=== PATIENT | male | born 1980 | race Hispanic/Latino ===

== ENCOUNTER 2023-09-27 15:41 | Emergency (ER) | payer OTHER, SELFPAY ==
[2023-09-27 15:45] VITALS: BP 120/94
--- NOTE | 2023-09-27 16:48 | ED.GENMED ---
History of Present Illness
<Leona Hill NP - Last Filed: 09/27/23 22:04>
General
Chief Complaint: Alcohol Problem
Source: patient and police
Exam Limitations: none
Time Seen by Provider: 09/27/23 16:45
Nursing documentation reviewed up to this point in time: agreed with
Travel History
Have you had any contact with someone who has COVID-19?: No
Do you have any symptoms of coronavirus? Fever > 100 degrees, chills, cough, shortness of breath, sore throat, loss of taste or smell, muscle aches, or headache?: No
History of Present Illness
History of Present Illness:
Patient brought to ED by [employer] officers for medical clearance for incarceration. According to office, patient was referred to ED after elevated BP reading at [facility]. Patient complains of withdrawal symptoms. Admits to alcohol abuse.
Last drink was this AM. Complains of feeling shaky.
Past History
<Leona Hill NP - Last Filed: 09/27/23 22:04>
Past History
ED Past Medical History: GERD and Other ('Possible heart attack and Enlarged heart from taking steroids')
ED Past Surgical History: Other
Social History
Tobacco: Smoker
Alcohol: Occasional
Drug: None
Personal:
Living: [facility]
Employment: Other
Family History
Family History: Other
Review of Systems
<Leona Hill NP - Last Filed: 09/27/23 22:04>
Review of Systems
Allergies reviewed?: Yes
All Other Systems: ROS reviewed and negative except as documented in HPI and ROS
Constitutional: Reports no symptoms
EENT: Reports no symptoms
Respiratory: Reports no symptoms
Cardiac: Reports no symptoms
ABD/GI: Reports no symptoms
Musculoskeletal: Reports no symptoms
Skin: Reports no symptoms
Neurological: Reports other (feeling shaky)
Psychiatric: Reports no symptoms
Phy Exam
<Leona Hill CHIEF EMBALMER - Last Filed: 09/27/23 22:04>
General Physical Exam
General Presentation: well appearing and no apparent distress
General age: appears stated age
General Skin: warm and dry
General Habitus: normal
General Mental: alert
General Hydration: appears well hydrated
Cardiovascular Exam
Cardiovascular Exam: regular rate/rhythm
Pulmonary Exam
Pulmonary Exam: no respiratory distress
Gastrointestinal Exam
Gastrointestinal Exam: non tender
Neurological Exam
Neurological Exam: alert, oriented x3, no motor deficits, no sensory deficits and speech normal
Musculoskeletal Exam
Musculoskeletal Exam: full ROM and neuro vasc intact
Skin Exam
Skin Exam: normal color, warm/dry and no rash
Psychiatric Exam
Psychiatric Exam: normal mood/affect
Scores
<Leona Hill, CHIEF EMBALMER - Last Filed: 09/27/23 22:04>
Withdrawal Assessment of Alcohol
Withdrawal Assessment Completed?: Yes
Nausea and Vomiting: No nausea and no vomiting
Tactile Disturbances: None
Tremor: Moderate, with patient's arms extended
Auditory Disturbances: Not present
Paroxysmal Sweats: No sweat visible
Visual Disturbances: Not present
Anxiety: Mild anxiety
Headache, Fullness in Head: Not present
Agitation: Normal activity
Orientation and clouding of sensorium: Oriented and can do serial additions
Total CIWA Score: 5
Alcohol Withdrawal Medication Recommendation: Equal to MSAS Score 0-4. Monitor & re-assess q2hrs, NO MEDICATION NEEDED
<Zack Duron DO - Last Filed: 09/27/23 19:06>
Withdrawal Assessment of Alcohol
Total CIWA Score: 5
Alcohol Withdrawal Medication Recommendation: Equal to MSAS Score 0-4. Monitor & re-assess q2hrs, NO MEDICATION NEEDED
Course
<Leona Hill, CHIEF EMBALMER - Last Filed: 09/27/23 22:04>
Orders/Labs/Results
Orders:
Orders
09/27/23 15:59
Alcohol Urgent
Basic Metabolic Panel Urgent
Complete Blood Count/With Diff Urgent
09/27/23 17:51
0.9% Sodium Chloride 1000 ml [Nss] 1,000 ml IV BOLUS
09/27/23 18:11
Lorazepam [Ativan] 1 mg IV NOW STA
09/27/23 19:01
Lorazepam [Ativan] 1 mg PO NOW STA
Abnormal Lab Results
09/27/23
15:59
RBC 3.39 L 10^6/uL
(4.70-6.10)
Hgb 12.7 L g/dL
(13.0-18.0)
Hct 31.7 L %
(39.0-52.0)
MCH 37.5 H pg
(27.0-31.0)
MCHC 40.1 H g/dL
(33.0-37.0)
RDW 16.7 H %
(11.5-14.5)
MPV 13.2 H fL
(7.4-10.4)
Absolute Lymphs (auto) 1.1 L 10^3/uL
(1.2-3.4)
Immature Gran % 0.8 H %
(0-0.5)
Sodium 128 L mmol/L
(135-145)
Chloride 97 L mmol/L
(98-107)
Carbon Dioxide 20 L mmol/L
(22-30)
Glucose 128 H mg/dl
(70-99)
09/27/23 15:59
09/27/23 17:08
Vital Signs
Initial and Last Documented VS:
Initial Vital Signs
Temp Pulse Resp BP Pulse Ox
98.0 F 108 18 120/94 98
09/27/23 15:45 09/27/23 15:45 09/27/23 15:45 09/27/23 15:45 09/27/23 15:45
Last Documented Vital Signs
Temp Pulse Resp BP Pulse Ox
98.0 F 103 17 121/81 98
09/27/23 15:45 09/27/23 19:00 09/27/23 19:00 09/27/23 19:00 09/27/23 15:45
<Zack Duron, DO - Last Filed: 09/27/23 19:06>
Orders/Labs/Results
Orders:
Orders
09/27/23 15:59
Alcohol Urgent
Basic Metabolic Panel Urgent
Complete Blood Count/With Diff Urgent
09/27/23 17:51
0.9% Sodium Chloride 1000 ml [Nss] 1,000 ml IV BOLUS
09/27/23 18:11
Lorazepam [Ativan] 1 mg IV NOW STA
09/27/23 19:01
Lorazepam [Ativan] 1 mg PO NOW STA
Abnormal Lab Results
09/27/23
15:59
RBC 3.39 L 10^6/uL
(4.70-6.10)
Hgb 12.7 L g/dL
(13.0-18.0)
Hct 31.7 L %
(39.0-52.0)
MCH 37.5 H pg
(27.0-31.0)
MCHC 40.1 H g/dL
(33.0-37.0)
RDW 16.7 H %
(11.5-14.5)
MPV 13.2 H fL
(7.4-10.4)
Absolute Lymphs (auto) 1.1 L 10^3/uL
(1.2-3.4)
Immature Gran % 0.8 H %
(0-0.5)
Sodium 128 L mmol/L
(135-145)
Chloride 97 L mmol/L
(98-107)
Carbon Dioxide 20 L mmol/L
(22-30)
Glucose 128 H mg/dl
(70-99)
09/27/23 15:59
09/27/23 17:08
Vital Signs
Initial and Last Documented VS:
Initial Vital Signs
Temp Pulse Resp BP Pulse Ox
98.0 F 108 18 120/94 98
09/27/23 15:45 09/27/23 15:45 09/27/23 15:45 09/27/23 15:45 09/27/23 15:45
Last Documented Vital Signs
Temp Pulse Resp BP Pulse Ox
98.0 F 103 17 121/81 98
09/27/23 15:45 09/27/23 19:00 09/27/23 19:00 09/27/23 19:00 09/27/23 15:45
<Leona Hill NP - Last Filed: 09/27/23 22:04>
*Critical Care Note
Total Time (30-74mins, 75-104mins- exclusive of procedures): Not Applicable
<Leona Hill NP - Last Filed: 09/27/23 22:04>
Update Note
Update Note:
Mild withdrawal symptoms relieved by Ativan. He is medically clear for incarceration. Case discussed with Dr. Duron who also evaluated this patient. Agrees with findings and plan.
ED Attending Note
<Leona Hill NP - Last Filed: 09/27/23 22:04>
-
Portions of this chart may have been created with voice recognition software.� Occasional wrong word or��sound alike� substitutions may have occurred due to the inherent limitations of voice recognition software.
<Zack Duron, DO - Last Filed: 09/27/23 19:06>
ED Attending Note
Patient seen and examined by attending physician: Yes
I performed the substantive portion of visit, reviewed & personally made and approve the management plan that is documented in note by myself or BELEN.: Yes
ED Attending Note:
Seen with CHIEF EMBALMER examined independently 43-year-old male in police custody daily drinker feels a bit shaky feeling better after Ativan, believe he can safely be discharged to the longterm to follow with her withdrawal protocol is normal mental status,
Discharge Plan
Departure
Patient Disposition: Correction
Date of Disposition: 09/27/23
Time of Disposition: 19:01
Patient with high blood pressure during this ER visit?: Yes
Condition: Good
Covid-19: Not Applicable
Discharge Problem:
Medical clearance for incarceration, Alcohol addiction
Instructions: Alcohol Use Disorder (DC)
Prescriptions:
No Action
pantoprazole 40 MG tablet,delayed release (DR/EC)
40 mg PO DAILY 30 Days Qty: 30 0RF
Referrals:
NONE,* [Family Provider] -
Activity Restrictions/Additional Instructions:
Aki Oquendo is medically cleared for incarceration. Given Ativan 1mg IV and Ativan 1mg po while in ED for mild alcohol withdrawal symptoms.
Interventions
Interventions:
*Risk Screen - Suicide Last Done: 09/27/23 15:45
*General Assessment Last Done: 09/27/23 15:45
*Neglect/Abuse Screening Last Done: 09/27/23 15:45
ED- Fall Risk Assessment Last Done: 09/27/23 15:45
*ED COVID-19 Vaccine History Last Done: 09/27/23 15:45
*Nursing Disposition Last Done: 09/27/23 19:19
ED- Neurological Assessment Last Done: 09/27/23 17:22
ED-Psychological Assessment Last Done: 09/27/23 17:23
Discharge Date and Time
Discharge Date/Time: 09/27/23 19:21
Print Language: OCCITAN
[2023-09-27 17:50] LABS: Blood Urea Nitrogen 15 mg/dl (9-20); Calcium 8.5 mg/dl (8.4-10.2); Carbon Dioxide 20 mmol/L (22-30); Chloride 97 mmol/L (98-107); Glucose 128 mg/dl (70-99); Sodium 128 mmol/L (135-145); eGFR > 60.00
[2023-09-27 18:05] LABS: Alcohol None Detected
[2023-09-27 18:07] LABS: White Blood Cell Count 5.1 10^3/uL (4.8-10.8)
[2023-09-27 18:08] LABS: Hematocrit 31.7 % (39.0-52.0); Hemoglobin 12.7 g/dL (13.0-18.0); Mean Corp Hgb Conc. 40.1 g/dL (33.0-37.0); Mean Corpuscular Hgb 37.5 pg (27.0-31.0); Mean Corpuscular Volume 93.5 fL (80.0-94.0); Mean Platelet Volume 13.2 fL (7.4-10.4); Platelet Count 241 10^3/uL (130-400); Red Blood Cell Count 3.39 10^6/uL (4.70-6.10); Red Cell Dist. Width 16.7 % (11.5-14.5)
[2023-09-27 18:09] LABS: % Basophils 0.4 % (0-2); % Eosinophils 0.2 % (0-6); % Immature Granulocytes 0.8 % (0-0.5); % Lymphocytes 20.9 % (20.5-51.1); % Monocytes 6.7 % (1.7-9.3); Absolute Lymphocytes 1.1 10^3/uL (1.2-3.4); Absolute Monocytes 0.3 10^3/uL (0.1-0.6); Absolute Neutrophils 3.6 10^3/uL (1.4-6.5)
[2023-09-27 18:10] LABS: Nucleated Red Blood Cells % 0 % (-)
[2023-09-27] MEDS: ATIVAN 1 MG IV (18:18)
[2023-09-27] MEDS: NSS 1000 IV (18:19)
[2023-09-27 19:00] VITALS: BP 121/81
[2023-09-27] MEDS: ATIVAN 1 MG PO (19:08)
== END 2023-09-27 19:21 ==
LOC: EMR 15:41
PROVIDERS: Emergency Medicine; EMERGENCY PHYSICIAN Emergency Medicine
DX: F10.20 Alcohol dependence, uncomplicated (principal); F17.200 Nicotine dependence, unspecified, uncomplicated; R03.0 Elevated blood-pressure reading, without diagnosis of hypertension
CPT/HCPCS: 99284; 96374; 96361; 80048; 82077; 85025